=== PATIENT | female | born 1945 | race Caucasian/White ===

== ENCOUNTER 2022-09-30 17:51 | Emergency (ER) | payer MEDICARE ==
[2022-09-30] MEDS ORDERED: HYDROcod/ACETAM 5/325 MG TABLET PO STA ×2 (18:36→19:57)
--- NOTE | 2022-09-30 18:37 | ED Physician Documentation ---
History of Present Illness - Stated complaint Stated Complaint: GLF RIB PAIN - Chief complaint Chief Complaint: Trauma Ch/Bk - Additonal information Additional information: 77-year-old female presents emergency department for evaluation of acute left anterior rib injury. 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 I am patient does have a history of Parkinson's. She was walking with her walker about 48 hours ago and was going over some uneven pavement when she fell. She believes that when she fell on her left side her elbow was under her. She has some pain on the lateral anterior edge of her ribs. She did not strike her head or lose consciousness. I am she has been taking some leftover hydrocodone for analgesia. Unable to take NSAIDs for 6 to 8 weeks following DBS placement. She denies any headache. Per her partner at the bedside she has been behaving normally. Review of Systems Constitutional: reports: Reviewed and negative Cardiac: denies: Chest pain / pressure, Palpitations Respiratory: denies: Dyspnea, Cough, Hemoptysis Musculoskeletal: reports: Other (Left anterior lateral rib pain) Neurologic: reports: Reviewed and negative Psychiatric: reports: Reviewed and negative PD PAST MEDICAL HISTORY - Past Medical History Past Medical History: Yes Neuro: Parkinson's - Past Surgical History Past Surgical History: Yes Neuro: Other - Present Medications Home Medications: Ambulatory Orders Medication Instructions Recorded Confirmed Hydrocodone/Acetaminophen 1 each PO BID PRN #15 tablet 09/30/22 [Hydrocodone-Acetamin 10-325 mg] - Allergies Allergies/Adverse Reactions: Allergies Allergy/AdvReac Type Severity Reaction Status Date / Time Penicillins Allergy Edema Verified 09/30/22 18:00 Sulfa (Sulfonamide Allergy Edema Verified 09/30/22 18:00 Antibiotics) oxycodone AdvReac Unknown Verified 09/30/22 18:00 - Social History Does the pt smoke?: No Smoking Status: Never smoker Does the pt drink ETOH?: No Does the pt have substance abuse?: No - Immunizations Immunizations are current?: Yes PD ED PE NORMAL - General General: Alert and oriented X 3, No acute distress, Well developed/nourished - HEENT HEENT: Atraumatic, Moist mucous membranes - Neck Neck: Supple, no meningeal sign, No adenopathy - Cardiac Cardiac: RRR, No murmur, Other (Tenderness to palpation of the left lower anterior and lateral rib wall with mild ecchymosis. Patient is able to take full deep breaths) - Respiratory Respiratory: No respiratory distress, Clear bilaterally - Abdomen Abdomen: Normal bowel sounds, Soft - Back Back: No spinal TTP (No tenderness elicited over the cervical thoracic or lumbar spines.), Other (No pain within the hips full range of motion) - Derm Derm: Normal color, Warm and dry, No rash - Extremities Extremities: No deformity - Neuro Neuro: Alert and oriented X 3, pet sitting 2-12 intact Eye Opening: Spontaneous Motor: Obeys Commands Verbal: Oriented GCS Score: 15 Results - Vitals Vitals: Vital Signs - 24 hr 09/30/22 18:01 Temperature 36.6 C Heart Rate 79 Respiratory 18 Rate Blood Pressure 142/81 H O2 Saturation 100 Oxygen O2 Source Room air - Rads (name of study) cxr Radiology: Final report received (Suggest a minimally displaced left anterior lateral sixth rib fracture) PD Medical Decision Making - ED course Complexity details: considered differential, d/w patient, d/w family ED course: 77-year-old female who has a history of Parkinson's presents emergency department after ground-level fall 2 days ago in which she went over uneven pavement while using her walker. She fell onto the left side onto her elbow. She has a bruise over her left anterior lateral lower rib wall. An x-ray does confirm a mildly displaced rib fracture here. There is no secondary findings to suggest pneumonia or pneumothorax. Patient has modest pain control with use of hydrocodone and a prescription will be sent to the pharmacy to help with analgesia as the higher risk of developing atelectasis and then pneumonia subsequently can be minimized with appropriate analgesia. We discussed the usual care for isolated rib fractures as well as the emergent return precautions. Departure - Departure Disposition: 01 Home, Self Care Clinical Impression: Ground-level fall Left rib fracture Qualifiers: Encounter type: initial encounter Rib fracture type: single rib Fracture type: closed Qualified Code(s): S22.32XA - Fracture of one rib, left side, initial encounter for closed fracture Condition: Stable Record reviewed to determine appropriate education?: Yes Instructions: ED Fx Rib Prescriptions: Hydrocodone/Acetaminophen [Hydrocodone-Acetamin 10-325 mg] 1 each PO BID PRN #15 tablet PRN Reason: Pain Comments: You fell 3 days ago and unfortunately fractured your left sixth rib. This is mildly displaced. In general this will heal over the next 4 to 6 weeks. I encourage you to use a Salonpas lidocaine patch over the rib this can help with pain. Ice can also be helpful. Splinting the rib with tape as we discussed can also be helpful. Is important you continue to take big deep breaths in order to help prevent atelectasis and pneumonia. I am sending a limited prescription of hydrocodone to your pharmacy. If your symptoms worsen, you develop fevers have uncontrolled vomiting or bloody sputum or difficulty breathing you should return immediately to the ER. Please discuss this ED visit with your primary care provider. I am prescribing a short course of narcotic pain medication for you. These are p otentially dangerous and addictive medications that should be used carefully. These medications may constipate you. Take an [id number] stool softener (docusate) twice daily with plenty of water while taking these medications. If you go 24 hours without a bowel movement, take [id number] miralax, per package instructions. Do not drink or drive while taking these medications. If you received narcotic or sedating medications while in the emergency department, do not drive for 24 hours. Store this medication in a safe, secure place and out of reach of children. It is a violation of federal law to give or sell this medication to another person or to use in a manner other than prescribed. The ED will not refill narcotic prescriptions, including prescriptions lost or stolen. To dispose of unwanted medications: 1. [facility] at [address] in [place] has a medication drop box. They accept prescription medications (in pill form) Thursday through Thursday 9:00 a.m. to 5:00 p.m. 2. [facility] [employer] accepts prescription medications (in pill form only) for disposal year round. Call for more information. 3. Contact the [facility] for the next [facility] sponsored prescription drug collection event. , [phone], or [phone]; Note that many narcotic pain relievers also contain Tylenol/acetaminophen. Please ensure that your total dose of acetaminophen from all sources does not exceed 3 g (3000 mg) per day.
--- NOTE | 2022-09-30 19:22 | XRAY Report ---
PROCEDURE: Ribs w/PA Chest LT INDICATIONS: glf; pain; fx vs contusion TECHNIQUE: 3 views of the left ribs were acquired, along with a single view chest. COMPARISON: None FINDINGS: Surgical changes and devices: Right chest wall stimulator is seen. Surgical hardware in lower cervica l spine is also seen. Bones and chest wall: Subtle irregularity involving left anterolateral sixth rib is noted suggestive of subtle minimally displaced fracture in this area. No other fracture or dislocation. No suspicious bony lesions. Overlying soft tissues appear unremarkable. Lungs and pleura: No pleural effusions or pneumothorax. Lungs appear clear. Mediastinum: Mediastinal contours appear normal. Heart size is normal. IMPRESSION: Suggestion of minimally displaced left anterolateral sixth rib fracture. No acute cardiopulmonary pat hology. Reviewed by: Nasim Acuna MD on 09/30/2022 7:21 PM PST Approved by: Nasim Acuna MD on 09/30/2022 7:21 PM PST Station ID: [id number]
[2022-09-30 20:15] VITALS: BP 104/68
== END 2022-09-30 20:15 | disposition home or self-care (01) ==
LOC: ED 17:51
DX: S22.32XA Fracture of one rib, left side, initial encounter for closed fracture (principal); W01.0XXA Fall on same level from slipping, tripping and stumbling without subsequent striking against object, initial encounter; Y93.01 Activity, walking, marching and hiking; Y92.414 Local residential or business street as the place of occurrence of the external cause; G20 Parkinson's disease
CPT/HCPCS: 71101; 99282; 99283; A9270